=== PATIENT | female | born 1980 | race Caucasian/White ===

== ENCOUNTER 2017-03-18 21:49 | Inpatient (IN) | payer BC ==
[~2017-03-18] VITALS: Ht 154.9 cm; Wt 74.5 kg
[~2017-03-18 21:49] MED LIST: Motrin PO; PRENATAL TABLE1 EAC3 PO
[2017-03-18 22:03] VITALS: BP 120/73
[2017-03-18] MEDS ORDERED: LEVOTHYROXINE150 MCG PO (22:44)
[2017-03-18] MEDS ORDERED: PRENATAL TABLE1 EAC3 PO (22:44)
[2017-03-18] MEDS ORDERED: VITAMIN D-32000 UNI2 PO (22:44)
[2017-03-18 22:56] LABS: EOSINOPHIL (%) 1.1 % (0-5); EOSINOPHIL COUNT 0.1 K/uL (0-0.3); HEMATOCRIT 34.7 % (36.0-46.0); IMMATURE GRANULOCYTE (%) 0.4 % (0.0-0.7); INSTRUMENT ABS NEUTROPHIL CT 5.4 K/uL; LYMPHOCYTE COUNT 1.6 K/uL (1.0-2.8); MCH 29.2 PG (29.0-34.0); MCV 85.9 FL (83-99); MONOCYTE (%) 9.5 % (3-12); MONOCYTE COUNT 0.7 K/uL (0-0.8); NEUTROPHIL (%) 69.1 % (45-76); NEUTROPHIL COUNT 5.4 K/uL (1.8-6.4); PLATELET COUNT 203 K/uL (156-360); RBC DIS.WIDTH-CV 13.1 % (11.8-14.6); RBC DIS.WIDTH-SD 40.7 % (39-53); RED BLOOD COUNT 4.04 M/uL (3.80-5.20); WHITE BLOOD COUNT 7.8 K/uL (4.1-10.2)
[2017-03-18 23:06] VITALS: BP 133/72
[2017-03-19] VITALS (11 sets, daily range): BP systolic 116–138; BP diastolic 57–75
[2017-03-20 06:48] LABS: EOSINOPHIL (%) 1.9 % (0-5); EOSINOPHIL COUNT 0.1 K/uL (0-0.3); HEMATOCRIT 34.3 % (36.0-46.0); IMMATURE GRANULOCYTE (%) 0.6 % (0.0-0.7); INSTRUMENT ABS NEUTROPHIL CT 4.2 K/uL; LYMPHOCYTE COUNT 1.9 K/uL (1.0-2.8); MCH 28.6 PG (29.0-34.0); MCHC 32.4 G/DL (30.0-36.0); MCV 88.4 FL (83-99); MEAN PLAT.VOLUME 10.8 uM^3 (9.5-12.4); MONOCYTE (%) 8.6 % (3-12); MONOCYTE COUNT 0.6 K/uL (0-0.8); NEUTROPHIL (%) 61.5 % (45-76); NEUTROPHIL COUNT 4.2 K/uL (1.8-6.4); PLATELET COUNT 177 K/uL (156-360); RBC DIS.WIDTH-CV 13.6 % (11.8-14.6); RBC DIS.WIDTH-SD 43.9 % (39-53); RED BLOOD COUNT 3.88 M/uL (3.80-5.20); WHITE BLOOD COUNT 6.9 K/uL (4.1-10.2)
[2017-03-20 07:53] VITALS: BP 125/75
[2017-03-20] MEDS ORDERED: IBUPROFEN800 MG PO (10:15)
== END 2017-03-20 13:20 | disposition home or self-care (01) | DRG 775 ==
LOC: LDRP-OP 21:49 → 2WEST 21:51 → LDRP-OP 04-24 10:56
PROVIDERS: Advanced Practice Midwife
PROC: 10E0XZZ Delivery of Products of Conception, External Approach (ICD-10-PCS; principal; 2017-03-18)
DX: O99.284 Endocrine, nutritional and metabolic diseases complicating childbirth (principal); Z85.850 Personal history of malignant neoplasm of thyroid; Z79.899 Other long term (current) drug therapy; Z3A.39 39 weeks gestation of pregnancy; Z37.0 Single live birth; E89.0 Postprocedural hypothyroidism
CPT/HCPCS: 85025; G0378; J7120